=== PATIENT | male | born 1955 | race Caucasian/White ===

== ENCOUNTER 2019-07-23 08:49 | Outpatient (CLI) | payer OTHER ==
--- NOTE | 2019-07-23 10:17 | CT ---
CT ABDOMEN AND PELVIS WITH AND WITHOUT CONTRAST: Date: 07/23/2019 Postcontrast images were obtained in portal venous and delayed venous phase. INDICATION: Prostate cancer. No comparison. FINDINGS: Lung bases clear. The liver, spleen, and pancreas appear unremarkable. Stomach and duodenum unremarkable. Adrenal gland s normal. Review of the urinary tract shows no evidence of urinary tract calcification. There is no evidence of hydronephrosis. Both kidneys show symmetric function and enhancement. No mass lesion. Ureters are no rmal caliber. The bladder is mildly distended and appears unremarkable. No significant prostatic hypertrophy appare nt. No adenopathy identified. Aorta normal caliber. Bowel loops appear unremarkable. Osseous structures unremarkable. No lytic or s clerotic osseous lesions identified. IMPRESSION: Unremarkable CT abdomen and pelvis. POS: [facility]
[2019-07-23] MEDS ORDERED: Iopamidol-370 76% 500 ML 1 ML ONE (14:41)
== END 2019-07-23 08:50 | disposition home or self-care (01) ==
LOC: BICCT 08:49
PROVIDERS: ATTEND Urology
DX: C61 Malignant neoplasm of prostate (principal); R74.8 Abnormal levels of other serum enzymes; K42.9 Umbilical hernia without obstruction or gangrene
CPT/HCPCS: 74178; 82565; Q9967

== ENCOUNTER 2019-08-14 10:00 | Outpatient (CLI) | payer MEDICARE, OTHER ==
--- NOTE | 2019-08-14 11:46 | MRI ---
MR OF THE PELVIS WITH AND WITHOUT CONTRAST INDICATION: Prostate Cancer COMPARISON: None TECHNIQUE: Multiplanar, multisequence MR images were obtained of the pelvis with and without IV contr ast. 20 cc of MultiHance was utilized for the examination. The examination was reviewed on a separate [employer] 3-D workstation for multiplanar metric evaluation. FINDINGS: Prostate size: The prostate measured 4.5 x 3.7 x 3.5cm. 28.35 cc. Peripheral zone: No area of restricted diffusion is seen within the peripheral zone. Central zone: No suspicious signal abnormality or focal lesion. Neural vasculature: No evidence of neurovascular invasion Regional lymphadenopathy: None Dynamic contrast enhancement: Negative. Osseous structures: No suspicious osseous lesion is identified. Additional findings: There is some residual focal regions of T1 hyperintensity seen within the periph eral zone of the prostate gland likely related to residual hemorrhage from the patient's biopsy. IMPRESSION: 1. PIRADS 2- Low (clinically significant cancer is unlikely to be present.)
== END 2019-08-14 10:01 | disposition home or self-care (01) ==
LOC: TBSIIMAG 10:00
PROVIDERS: ATTEND Urology
DX: C61 Malignant neoplasm of prostate (principal)
CPT/HCPCS: 72197

== ENCOUNTER 2020-01-23 05:02 | Outpatient (CLI) | payer MEDICARE, OTHER ==
[2020-01-23 13:54] LABS: INR-International Normal Ratio 0.9; PTT 27.4 sec (22.9-36.1); Prothrombin Time 12.5 sec (12.0-14.7)
[2020-01-23 14:03] LABS: Hemoglobin 13.9 g/dL (14.0-18.0); Mean Corpuscular HGB CONC 33.5 g/dL (32.0-36.0); Mean Corpuscular Hemoglobin 31.5 pg (27.0-31.0); Mean Platelet Volume 6.4 fL (7.4-10.4); Platelet Count 368 thou/uL (130-400); Red Blood Cell (RBC) Count 4.41 mill/uL (4.70-6.10); White Blood Cell (WBC) Count 10.9 thou/uL (4.8-10.8)
[2020-01-23 14:18] LABS: Bacteria/HPF None Seen HPF (None Seen); Bilirubin Negative (Negative); Blood, Urine Negative (Negative); Clarity Clear (Clear); Glucose, Urine (Dipstick) Normal (Negative); Ketone, Urine Negative (Negative); Leukocyte Negative Leu/uL (Negative); Nitrite Negative (Negative); Protein, Urine (Dipstick) Negative (Neg-Trace); RBC/HPF 0-3 HPF (0-3); Specific Gravity, Urine 1.021 (1.002-1.036); Squamous Epithelial None Seen HPF (0-3); Urobilinogen Normal mg/dL (Less than 2); WBC/HPF 0-3 HPF (0-3); pH, Urine 6.5 (5.0-9.0)
[2020-01-23 14:22] LABS: Anion Gap 17 mmol/L (10-20); BUN (Urea Nitrogen) 13 mg/dL (8.4-25.7); Calc. Creatinine Clearance 0 mL/min (70-130); Calcium 9.7 mg/dL (7.8-10.44); Carbon Dioxide 23 mmol/L (23-31); Chloride 102 mmol/L (98-107); Estimated GFR-MDRD 73; Glucose 107 mg/dL (80-115); Potassium 4.5 mmol/L (3.5-5.1); Sodium 137 mmol/L (136-145)
[2020-01-24 12:37] LABS: SARS-CoV-2 MS2 Positive; SARS-CoV-2 N Gene Negative; SARS-CoV-2 S Gene Negative; SARS-CoV-2 orf1ab Negative
== END 2020-01-23 05:03 | disposition home or self-care (01) ==
LOC: LABBT 05:02
PROVIDERS: ATTEND Urology
DX: Z01.818 Encounter for other preprocedural examination (principal); Z11.59 Encounter for screening for other viral diseases; C61 Malignant neoplasm of prostate; R97.20 Elevated prostate specific antigen [PSA]; N28.1 Cyst of kidney, acquired; Z12.5 Encounter for screening for malignant neoplasm of prostate; I10 Essential (primary) hypertension; Z87.891 Personal history of nicotine dependence; R74.8 Abnormal levels of other serum enzymes; K42.9 Umbilical hernia without obstruction or gangrene; N40.1 Benign prostatic hyperplasia with lower urinary tract symptoms; R35.0 Frequency of micturition
CPT/HCPCS: 80048; 81001; 84153; 85027; 85610; 85730; 87086; 93005; U0003; 87635; 93010

== ENCOUNTER 2020-01-28 06:08 | Day surgery (SDC) | payer MEDICARE ==
[2020-01-21 10:32] VITALS: BMI 29.6
[2020-01-28] MEDS ORDERED: Fentanyl 100 MCG/2 ML VIAL ONE (07:05)
[2020-01-28] MEDS ORDERED: cefTRIAXone\\ROCEPHIN 1 GM VIAL ONE (07:10)
[2020-01-28] MEDS ORDERED: Sodium Chloride 0.9% 100 ML ONE (07:11)
[2020-01-28] MEDS ORDERED: Levofloxacin 500 mg/D5W 100 ml Premix Bag ONE (07:11)
[2020-01-28] MEDS ORDERED: HYDROcodone/Acetaminophen 5/325 mg Tablet ONE (10:20)
[2020-01-28] MEDS ORDERED: PROPOFOL 200 MG/20 ML VIAL ONE (11:21)
--- NOTE | 2020-01-28 12:18 | OP ---
DATE OF PROCEDURE: 01/28/2020 PREOPERATIVE DIAGNOSIS: 1. A 65-year-old male with Damon score 3 + 3, prostate cancer, 3/12 cores positive. 2. Unremarkable digital rectal exam. 3. Benign prostatic hyperplasia. POSTOPERATIVE DIAGNOSES: 1. A 65-year-old male with Holland score 3 + 3, prostate cancer, 3/12 cores positive. 2. Unremarkable digital rectal exam. 3. Benign prostatic hyperplasia. PROCEDURE PERFORMED: Transrectal ultrasound, 12 core needle core biopsy staging. ANESTHESIA: TIVA. COMPLICATIONS: None apparent. DISPOSITION: To recovery room in stable condition. SPECIMEN: 12 core needle prostate biopsy. INDICATIONS FOR PROCEDURE AND HISTORY: Mr. Schmidt is a 65-year-old male, who was diagnosed with clinical T2a, Holland score 3 + 3 prostate cancer with low GPS score. His digital rectal exam today is grossly unremarkable. He presents for restaging prostate biopsy. Staging MRI is negative. He desires to be continued to be surveyed for his prostate cancer, presents for staging prostate biopsy. Risks and complications of the procedure were reviewed including, but not limited to, bleeding, pain, infection, injury to adjacent organs, urosepsis, blood per rectum, hematuria warranting secondary procedure was reviewed with him in detail and he desired to proceed. DESCRIPTION OF PROCEDURE: After an informed consent was signed, the patient was taken to the operating room, placed in a dorsal lithotomy position with the genital area prepped and draped in the usual surgical sterile fashion. A transrectal ultrasound probe was placed rectally, measuring the prostate volume, which measured urethral length of 3.9, width of 4.8, height of 3.4 with volume estimated to be 34.55 g. At this time, we performed a standard 12 core needle prostate biopsy uneventfully. He tolerated the procedure well and transferred to the recovery room in stable condition. He is discharged with Levaquin 500 mg one p.o. daily for 3 days, he is advised to continue tamsulosin. He will return to clinic in 2 to 3 weeks to review prostate biopsy pathology. Job ID: [id number]
== END 2020-01-28 11:02 | disposition home or self-care (01) ==
LOC: SDC 06:08
PROVIDERS: ATTEND Urology
PROC: 0VB03ZX Excision of Prostate, Percutaneous Approach, Diagnostic (ICD-10-PCS; principal; 2020-01-28)
DX: C61 Malignant neoplasm of prostate (principal); I10 Essential (primary) hypertension; N52.9 Male erectile dysfunction, unspecified; N40.1 Benign prostatic hyperplasia with lower urinary tract symptoms; R35.0 Frequency of micturition; N28.1 Cyst of kidney, acquired; Z87.891 Personal history of nicotine dependence; Z79.899 Other long term (current) drug therapy
CPT/HCPCS: 88305; J0696; J1956; J3010; J3490

== ENCOUNTER 2020-08-02 08:41 | Outpatient (CLI) | payer MEDICARE ==
--- NOTE | 2020-08-02 10:46 | MRI ---
MULTI PARAMETRIC MRI OF THE PELVIS (PROSTATE) WITH AND WITHOUT IV CONTRAST WITH REVIEW ON INDEPENDENT 3-D WORKSTATION: HISTORY: Prostate cancer. Benign prostatic hyperplasia with lower urinary tract symptoms COMPARISON: 08/14/2019 FINDINGS: PROSTATE: The prostate gland measures 4.3 x 3.2 x 4 cm with a volume of 29 cc. PERIPHERAL ZONE: No focal abnormal areas of restricted diffusion is seen to suggest malignant process . TRANSITIONAL ZONE: No lentiform area of abnormally decreased T2 signal is seen to suggest a malignant process. No focal arterial enhancing mass is seen. Prostatic capsule is intact. The seminal vesicles are intact. LYMPH NODES: No lymphadenopathy is seen. SOFT TISSUES: Pelvic sidewall is normal. No abnormality of the visualized rectum is seen. BONES: No abnormal areas of signal replacement on the T1-weighted sequences are seen to suggest osseo us metastatic disease. IMPRESSION: PI-RADS 2: Low (clinically significant prostate cancer is unlikely to be present).
== END 2020-08-02 08:42 | disposition home or self-care (01) ==
LOC: TBSIIMAG 08:41
PROVIDERS: ATTEND Urology
DX: C61 Malignant neoplasm of prostate (principal); N40.1 Benign prostatic hyperplasia with lower urinary tract symptoms
CPT/HCPCS: 72197

== ENCOUNTER 2021-11-10 10:26 | Outpatient (CLI) | payer MEDICARE | END 2021-11-10 10:27 | disposition home or self-care (01) | LOC: BICULT 10:26 | PROVIDERS: ATTEND Urology | DX: N28.1 Cyst of kidney, acquired (principal) | CPT/HCPCS: 76770 ==

== ENCOUNTER 2022-10-02 09:58 | Outpatient (CLI) | payer MEDICARE | END 2022-10-02 09:59 | disposition home or self-care (01) | LOC: BICCT 09:58 | PROVIDERS: ATTEND Urology | DX: C61 Malignant neoplasm of prostate (principal); N28.1 Cyst of kidney, acquired; Z87.891 Personal history of nicotine dependence; E83.52 Hypercalcemia; R82.998 Other abnormal findings in urine; R31.29 Other microscopic hematuria | CPT/HCPCS: 74178; 82565 ==

== ENCOUNTER 2025-03-24 08:58 | Outpatient (CLI) | payer MEDICARE, OTHER ==
[2025-03-24 09:36] LABS: Estimated GFR - POC 71.0
== END 2025-03-24 08:59 | disposition home or self-care (01) ==
LOC: SCSMRI 08:58
PROVIDERS: ATTEND Urology
DX: C61 Malignant neoplasm of prostate (principal)
CPT/HCPCS: 36415; 72197; 82565